=== PATIENT | male | born 1975 | race Caucasian/White ===

== ENCOUNTER 2017-09-02 18:18 | Observation (INO) | payer BC, OTHER ==
--- NOTE | 2017-09-02 18:53 | ER Document Report ---
ED Medical Screen (RME) - General Chief Complaint: Chest Pain Stated Complaint: CHEST PAIN Time Seen by Provider: 09/02/17 18:51 Mode of Arrival: Ambulatory Information source: Patient Notes: Patient is a 41-year-old male who presents to the ER today for chest pain in the center of his chest that started just 2 hours prior to arrival with shortness of breath, nausea, vomiting and diaphoresis. Patient is supposed to have heart catheterization performed in 4 days for 40% blockages of 2 arteries and his heart per patient. Patient's clinical massage therapist is Dr. Kelly out of [facility], he is visiting. TRAVEL OUTSIDE OF THE [place] IN LAST 30 DAYS: No - Related Data Allergies/Adverse Reactions: Penicillins Allergy (Verified 09/02/17 18:23) Past Medical History - General Information source: Patient - Social History Chew tobacco use (# tins/day): No Frequency of alcohol use: Rare Drug Abuse: None - Past Medical History Cardiac Medical History: Reports: Hx Hypercholesterolemia Renal/ Medical History: Denies: Hx Peritoneal Dialysis Past Surgical History: Reports: Hx Cardiac Catheterization - 2015 Review of Systems - Review of Systems Cardiovascular: See HPI Physical Exam - Vital signs Vitals: Temp Pulse Resp BP Pulse Ox 98.1 F 89 18 129/91 H 97 09/02/17 18:28 09/02/17 18:28 09/02/17 18:28 09/02/17 18:28 09/02/17 18:28 - Notes Notes: PHYSICAL EXAMINATION: GENERAL: Uncomfortable appearing, but in no acute distress. HEART: Regular rate and rhythm without murmurs Course - Vital Signs Vital signs: Temp Pulse Resp BP Pulse Ox 98.1 F 89 18 129/91 H 97 09/02/17 18:28 09/02/17 18:28 09/02/17 18:28 09/02/17 18:28 09/02/17 18:28
[2017-09-02] MEDS ORDERED: ASPIRIN 81 MG TABLET, CHEWABLE PO ONE (18:55)
[2017-09-02 19:01] LABS: ABSOLUTE BASOPHILS # (AUTO) 0.1 10^3/uL (0.0-0.2); ABSOLUTE EOSINOPHILS # (AUTO) 0.3 10^3/uL (0.0-0.6); ABSOLUTE LYMPHOCYTES (AUTO) 3.3 10^3/uL (0.5-4.7); ABSOLUTE MONOCYTES (AUTO) 0.8 10^3/uL (0.1-1.4); ABSOLUTE NEUT (AUTO) 5.4 10^3/uL (1.7-8.2); BASOPHILS % (AUTO) 0.7 % (0-2); EOSINOPHILS % (AUTO) 2.6 % (0-6); HEMATOCRIT 46.4 % (37.9-51.0); HEMOGLOBIN 15.6 g/dL (13.5-17.0); LYMPHOCYTES % (AUTO) 33.4 % (13-45); MEAN CORPUSCULAR HEMOGLOBIN 28.8 pg (27.0-33.4); MEAN CORPUSCULAR HGB CONC 33.6 g/dL (32.0-36.0); MEAN CORPUSCULAR VOLUME 86 fl (80-97); MONOCYTES % (AUTO) 8.2 % (3-13); PLATELET COUNT 194 10^3/uL (150-450); RED BLOOD COUNT 5.41 10^6/uL (4.35-5.55); RED CELL DISTRIBUTION WIDTH 14.4 % (11.5-14.0); SEGMENTED NEUTROPHILS % (AUTO) 55.1 % (42-78); TOTAL CELLS COUNTED % (AUTO) 100 %; WHITE BLOOD COUNT 9.8 10^3/uL (4.0-10.5)
--- NOTE | 2017-09-02 19:12 | ER Document Report ---
ED Cardiac - General Chief Complaint: Chest Pain Stated Complaint: CHEST PAIN Time Seen by Provider: 09/02/17 18:51 Mode of Arrival: Ambulatory Notes: 41-year-old male history of angina. Has had this on and off for several years. Had an angiogram done 3 years ago which showed 40% blockage in [address] Kelly with heart and vascular in [place] and history of hypertension and hyperlipidemia. Strong family history of coronary artery disease. Father in his 50s of heart complications. Sister in his her 50s with heart complications. The patient is here out of town visiting when he developed chest pain. Took 3 nitroglycerin but unrelieved. Presented the emergency department with pain going up his neck and down his left arm. Mild nausea but no vomiting. No other symptoms at this time. Denies any chest pain or shortness of breath at this time just some pressure in the chest. TRAVEL OUTSIDE OF THE [place] IN LAST 30 DAYS: No - HPI Patient complains to provider of: Chest pain, Chest tightness Use of: denies: Alcohol, Amphetamines, Bath salts, Caffeine, Cocaine, Decongestants, Other Was the onset of pain: Sudden Is the pain a: Chronic problem Chest pain location: Substernal Quality of pain: Dull - Related Data Allergies/Adverse Reactions: Penicillins Allergy (Verified 09/02/17 18:23) Past Medical History - General Information source: Patient - Social History Smoking Status: Never Smoker Chew tobacco use (# tins/day): No Frequency of alcohol use: Rare Drug Abuse: None Lives with: Spouse/Significant other Family History: CAD Patient has suicidal ideation: No Patient has homicidal ideation: No - Past Medical History Cardiac Medical History: Reports: Hx Hypercholesterolemia Renal/ Medical History: Denies: Hx Peritoneal Dialysis Past Surgical History: Reports: Hx Cardiac Catheterization - 2014 Review of Systems - Review of Systems Constitutional: denies: Chills, Diaphoresis, Fever EENT: denies: Double vision, Ear pain, Difficulty swallowing, Mouth pain Cardiovascular: Chest pain. denies: Palpitations, Heart racing, Orthopnea, Dyspnea Respiratory: denies: Cough, Hurts to breathe, Short of breath Gastrointestinal: Nausea. denies: Abdominal pain, Diarrhea, Vomiting Genitourinary: No symptoms reported Male Genitourinary: No symptoms reported Musculoskeletal: denies: Muscle pain, Leg swelling, Ankle swelling Skin: No symptoms reported Hematologic/Lymphatic: No symptoms reported Neurological/Psychological: No symptoms reported Physical Exam - Vital signs Vitals: Temp Pulse Resp BP Pulse Ox 98.1 F 89 18 129/91 H 97 09/02/17 18:28 18 18:28 09/02/17 18:28 09/02/17 18:28 09/02/17 18:28 Interpretation: Normal - General General appearance: Appears well, Alert - HEENT Head: Normocephalic, Atraumatic Eyes: Normal Pupils: PERRL - Respiratory Respiratory status: No respiratory distress Chest status: Nontender Breath sounds: Normal Chest palpation: Normal - Cardiovascular Rhythm: Regular Heart sounds: Normal auscultation Murmur: No - Abdominal Inspection: Normal Distension: No distension Bowel sounds: Normal Tenderness: Nontender Organomegaly: No organomegaly - Back Back: Normal, Nontender - Extremities General upper extremity: Normal inspection, Nontender, Normal color, Normal ROM , Normal temperature General lower extremity: Normal inspection, Nontender, Normal color, Normal ROM , Normal temperature, Normal weight bearing. No: Jes's sign - Neurological Neuro grossly intact: Yes Cognition: Normal Orientation: AAOx4 Manoj Coma Scale Eye Opening: Spontaneous Manoj Coma Scale Verbal: Oriented [place] Coma Scale Motor: Obeys Commands Manoj Coma Scale Total: 15 Speech: Normal Motor strength normal: LUE, RUE, LLE, RLE Sensory: Normal - Psychological Associated symptoms: Normal affect, Normal mood - Skin Skin Temperature: Warm Skin Moisture: Dry Skin Color: Normal Course - Re-evaluation Re-evalutation: 09/02/17 20:49 Patient definitely has some risk factors concerned enough to obs overnight. Patient has been seen by hospitalist. First set of labs unremarkable. Will admit at this time. - Vital Signs Vital signs: Temp Pulse Resp BP Pulse Ox 98.1 F 70 18 132/81 H 96 09/02/17 18:28 09/02/17 19:38 09/02/17 20:01 09/02/17 20:01 09/02/17 20:01 - Laboratory Result Diagrams: 09/02/17 18:50 09/02/17 18:50 Laboratory results interpreted by me: 09/02/17 09/02/17 18:50 19:21 RDW 14.4 H Urine Ketones 20 H Urine Urobilinogen 2.0 H Urine Ascorbic Acid 40 H - EKG Interpretation by Nh EKG shows normal: Sinus rhythm, [place], Intervals, QRS Complexes Discharge - Discharge Clinical Impression: Angina at rest Condition: Good Disposition: ADMITTED OBSERVATION Admitting Provider: Hospitalist - [facility] Unit Admitted: Telemetry
[2017-09-02 19:16] LABS: ALANINE AMINOTRANSFERASE 51 U/L (21-72); ALBUMIN 4.5 g/dL (3.5-5.0); ALKALINE PHOSPHATASE 52 U/L (38-126); ANION GAP 11 (5-19); ASPARTATE AMINO TRANSFERASE 27 U/L (17-59); BILIRUBIN,DIRECT 0.2 mg/dL (0.0-0.4); BILIRUBIN,TOTAL 0.4 mg/dL (0.2-1.3); BLOOD UREA NITROGEN 17 mg/dL (7-20); CALCIUM 10.1 mg/dL (8.4-10.2); CARBON DIOXIDE 28 mmol/L (22-30); CHLORIDE 104 mmol/L (98-107); CREATINE KINASE 124 U/L (55-170); GLUCOSE 100 mg/dL (75-110); LIPASE 74.3 U/L (23-300); POTASSIUM 4.7 mmol/L (3.6-5.0); SODIUM 143.2 mmol/L (137-145); TOTAL PROTEIN 6.9 g/dL (6.3-8.2)
[2017-09-02 19:27] LABS: CREATINE KINASE MB 0.78 ng/mL (<4.55)
[2017-09-02 19:30] LABS: TROPONIN I < 0.012 ng/mL
[2017-09-02] MEDS ORDERED: NITROGLYCERIN 2% OINTMENT 1 GM PACKET TP ONE (19:41)
[2017-09-02] MEDS ORDERED: MORPHINE SULFATE 10 MG/ML INJ IV ONE (19:41)
[2017-09-02] MEDS ORDERED: ONDANSETRON 4 MG TAB.RAPDIS PO ONE (19:42)
[2017-09-02 19:44] LABS: APPEARANCE,URINE CLEAR; BILIRUBIN,URINE NEGATIVE (NEGATIVE); COLOR,URINE YELLOW; GLUCOSE, URINE NEGATIVE (NEGATIVE); KETONES,URINE 20 mg/dL (NEGATIVE); LEUKOCYTE ESTERASE,URINE NEGATIVE (NEGATIVE); NITRITE,URINE NEGATIVE (NEGATIVE); PROTEIN,URINE NEGATIVE (NEGATIVE); URINE SPECIFIC GRAVITY 1.027
--- NOTE | 2017-09-02 19:50 | RADIOLOGY REPORT (SQ) ---
EXAM DESCRIPTION: CHEST SINGLE VIEW COMPLETED DATE/TIME: 09/02/2017 7:17 pm REASON FOR STUDY: cp COMPARISON: None. EXAM PARAMETERS: NUMBER OF VIEWS: One view. TECHNIQUE: Single frontal radiographic view of the chest acquired. RADIATION DOSE: NA LIMITATIONS: None. FINDINGS: LUNGS AND PLEURA: No opacities, masses or pneumothorax. No pleural effusion. MEDIASTINUM AND HILAR STRUCTURES: No masses. Contour normal. HEART AND VASCULAR STRUCTURES: Heart normal in size. Normal vasculature. BONES: No acute findings. HARDWARE: None in the chest. OTHER: No other significant finding. IMPRESSION: NO ACUTE RADIOGRAPHIC FINDING IN THE CHEST. TECHNICAL DOCUMENTATION: JOB ID: [id number] [place]-72 2010 [employer]- All Rights Reserved Reading location - IP/workstation name: [email or web address]
--- NOTE | 2017-09-02 21:01 | EKG REPORT ---
SEVERITY:- NORMAL ECG - SINUS RHYTHM : Confirmed by: Yesica Eric 02-Sep-2017 21:00:42
[2017-09-02] MEDS ORDERED: ZOLPIDEM TARTRATE 5 MG TABLET PO PRN (21:12)
[2017-09-02] MEDS ORDERED: ONDANSETRON HCL INJ/PF 4 MG/2 ML SDV IV PRN (21:12)
[2017-09-02] MEDS ORDERED: OXYCODONE-ACETAMINOPHEN 5-325 MG TABLET PO PRN (21:12)
[2017-09-02] MEDS ORDERED: NITROGLYCERIN 0.4 MG/TAB 25 TAB/BOTTLE SL PRN (21:18)
--- NOTE | 2017-09-02 21:34 | PDOC H&P ---
History of Present Illness Admission Date/PCP: 09/02/17 21:11 History of Present Illness: JERZY MCDANIEL is a 41 year old male patient presented with chief complaint of chest pain. Strength while he is relaxing at the beach about 5 PM this afternoon he started to have chest pain described as squeezing pressure type localizing to his precordium and radiating to both his neck and left shoulder. The pain relatively subsided after the fourth dose of nitroglycerin sublingual. Patient has strong family history of coronary artery disease both his mom and dad has triple bypass and his brother of heart attack at the age of 51. Patient had cardiac cath 3 years ago and he was told 40% narrowing but could not specify which artery is diseased. Of note patient scheduled to have cardiac cath coming Tuesday. His troponin and EKG are negative. The plan is to keep the patient overnight for observation if the chest pain resolved and patient clinically stable can be discharged next morning and he needs follow-up with his primary admission nurse coordinator. Past Medical History Cardiac Medical History: Reports: Hyperlipidema, Hypertension Past Surgical History Past Surgical History: Reports: Cardiac Catheterization - 2014 Social History Lives with: Spouse/Significant other Smoking Status: Never Smoker Family History Family History: CAD, Hypertension Parental Family History Reviewed: Yes Children Family History Reviewed: Yes Sibling(s) Family History Reviewed.: Yes Medication/Allergy Home Medications: Aspirin 81 mg PO DAILY 09/02/17 Fish Oil/Dha/Epa [Fish Oil 1,200 mg Fish Oil] 1 each PO QHS 09/02/17 Isosorbide Mononitrate [Imdur 30 mg Tablet.er] 15 mg PO DAILY 09/02/17 Metoprolol Tartrate 25 mg PO Q12 09/02/17 Nitroglycerin 0.4 mg SL Q5MP PRN 09/02/17 Pravastatin Sodium 40 mg PO QHS 09/02/17 Allergies/Adverse Reactions: Penicillins Allergy (Verified 09/02/17 18:23) Review of Systems Constitutional: ABSENT: chills, fever(s), headache(s), weight gain, weight loss Cardiovascular: ABSENT: chest pain, dyspnea on exertion, edema, orthropnea, palpitations Respiratory: PRESENT: other - Chest pain Gastrointestinal: ABSENT: abdominal pain, constipation, diarrhea, hematemesis, hematochezia, nausea, vomiting Physical Exam Vital Signs: Temp Pulse Resp BP Pulse Ox 98.1 F 70 18 132/81 H 96 09/02/17 18:28 09/02/17 19:38 09/02/17 20:01 09/02/17 20:01 09/02/17 20:01 General appearance: PRESENT: no acute distress, well-developed, well-nourished Head exam: PRESENT: atraumatic, normocephalic Eye exam: PRESENT: conjunctiva pink, EOMI, PERRLA. ABSENT: scleral icterus Respiratory exam: PRESENT: clear to auscultation ugo. ABSENT: rales, rhonchi, wheezes Cardiovascular exam: PRESENT: RRR. ABSENT: diastolic murmur, rubs, systolic murmur Results Impressions: Chest X-Ray 09/02/17 18:55 IMPRESSION: NO ACUTE RADIOGRAPHIC FINDING IN THE CHEST. Assessment & Plan - Diagnosis (1) Chest pain Qualifiers: Chest pain type: other chest pain Qualified Code(s): R07.89 - Other chest pain; R07.8 - Other chest pain Is this a current diagnosis for this admission?: Yes Plan: We will keep the patient overnight, his cardiac enzymes and for his chest pain will be on nitro, and aspirin. Patient scheduled to have cardiac catheterization coming Tuesday in 4 days by his primary admission nurse coordinator. Patient is clinically stable and can be discharged tomorrow. (2) Hypertension Qualifiers: Hypertension type: essential hypertension Qualified Code(s): I10 - Essential (primary) hypertension Is this a current diagnosis for this admission?: Yes Plan: Continue metoprolol - Time Critical Time spent with patient: 15-24 minutes
[2017-09-02] MEDS ORDERED: ATORVASTATIN CALCIUM 40 MG TABLET PO SCH (22:00)
[2017-09-02] MEDS ORDERED: ENOXAPARIN SODIUM INJ 40 MG/0.4 ML DISP.SYRIN SUBCUT ONE ×2 (22:30→23:45)
[2017-09-02] MEDS: METOPROLOL TARTRATE 25 MG TABLET PO SCH (23:41)
[2017-09-03] MEDS ORDERED: LANSOPRAZOLE 30 MG TAB.RAP.DR PO SCH (06:00)
[2017-09-03 07:25] LABS: ANION GAP 11 (5-19); BLOOD UREA NITROGEN 16 mg/dL (7-20); CALCIUM 9.5 mg/dL (8.4-10.2); CARBON DIOXIDE 28 mmol/L (22-30); CHLORIDE 104 mmol/L (98-107); GLUCOSE 101 mg/dL (75-110); POTASSIUM 4.5 mmol/L (3.6-5.0); SODIUM 143.2 mmol/L (137-145)
[2017-09-03] MEDS ORDERED: ACETAMINOPHEN 325 MG TABLET PO PRN (07:44)
--- NOTE | 2017-09-03 08:31 | PDOC CONSULTATION ---
Consultation Consult Date: 09/03/17 Consult reason:: Evaluation for chest pain History of Present Illness Admission Date/PCP: 09/02/17 21:11 Patient complains of: Chest pain/ pressure History of Present Illness: Here is a very pleasant 41 year old male with PMH of HTN, HPLD, family h/o CAD comes in with c/o mid sternal chest pain/ pressure while he was driving yesterday. he gives h/o on and off chest pain for past 3 weeks abd saw his assistant professor of physics at [place] last tuesday who had started him on Imdur 15 mg daily and scheduled him for a cardiac cath for coming tuesday. He claims he was on vacation this week to the beach and while driving back developed chest pressure with some radiation to his neck/ jaw. His symptoms were resolved after his 4th NTG dose. Since the he has been pain free. He also reports shortness of breath on exertion at times since past few weeks. he works for the [employer] and has a sedentary job. He denies cigarette smoking. he drinks on social occasions and denies any recreational drug use. His father and sister both had CAD by 50 yrs of age. he was admitted last evening and has been chest pain free since last evening. No other c/o dizziness/ palpitations/ swelling of legs. He claims he had a cardiac cath in 2014 which showed 2 blockages up to 40 % in one of the coronaries. Past Medical History Cardiac Medical History: Reports: Hyperlipidema, Hypertension Past Surgical History Past Surgical History: Reports: Cardiac Catheterization - 2014 Social History Lives with: Spouse/Significant other Smoking Status: Never Smoker Frequency of Alcohol Use: Social Hx Recreational Drug Use: No Drugs: None Family History Family History: CAD, Hypertension Parental Family History Reviewed: Yes Children Family History Reviewed: Yes Sibling(s) Family History Reviewed.: Yes Medication/Allergy Home Medications: Aspirin 81 mg PO DAILY 09/02/17 Fish Oil/Dha/Epa [Fish Oil 1,200 mg Fish Oil] 1 each PO QHS 09/02/17 Isosorbide Mononitrate [Imdur 30 mg Tablet.er] 15 mg PO DAILY 09/02/17 Metoprolol Tartrate 25 mg PO Q12 09/02/17 Nitroglycerin 0.4 mg SL Q5MP PRN 09/02/17 Pravastatin Sodium 40 mg PO QHS 09/02/17 Allergies/Adverse Reactions: Penicillins Allergy (Verified 09/02/17 18:23) Review of Systems Constitutional: ABSENT: chills, fever(s), headache(s), weight gain, weight loss Eyes: ABSENT: visual disturbances Ears: ABSENT: hearing changes Cardiovascular: ABSENT: chest pain, dyspnea on exertion, edema, orthropnea, palpitations Respiratory: ABSENT: cough, hemoptysis Gastrointestinal: ABSENT: abdominal pain, constipation, diarrhea, hematemesis, hematochezia, nausea, vomiting Genitourinary: ABSENT: dysuria, hematuria Musculoskeletal: ABSENT: joint swelling Integumentary: ABSENT: rash, wounds Neurological: ABSENT: abnormal gait, abnormal speech, confusion, dizziness, focal weakness, syncope Psychiatric: ABSENT: anxiety, depression, homidical ideation, suicidal ideation Endocrine: ABSENT: cold intolerance, heat intolerance, polydipsia, polyuria Hematologic/Lymphatic: ABSENT: easy bleeding, easy bruising Physical Exam Vital Signs: Temp Pulse Resp BP Pulse Ox 97.8 F 53 L 14 105/60 98 09/03/17 03:52 09/03/17 03:52 09/03/17 03:52 09/03/17 03:52 09/03/17 03:52 Intake & Output 09/02/17 09/03/17 09/04/17 06:59 06:59 06:59 Intake Total 120 Output Total 480 Balance -360 Weight 89.2 kg General appearance: PRESENT: no acute distress, well-developed, well-nourished Head exam: PRESENT: atraumatic, normocephalic Eye exam: PRESENT: conjunctiva pink, EOMI, PERRLA. ABSENT: scleral icterus Ear exam: PRESENT: normal external ear exam Mouth exam: PRESENT: moist, tongue midline Neck exam: ABSENT: carotid bruit, JVD, lymphadenopathy, thyromegaly Respiratory exam: PRESENT: clear to auscultation ugo. ABSENT: rales, rhonchi, wheezes Cardiovascular exam: PRESENT: bradycardia Pulses: PRESENT: normal dorsalis pedis pul Vascular exam: PRESENT: normal capillary refill GI/Abdominal exam: PRESENT: normal bowel sounds, soft. ABSENT: distended, guarding, mass, organolmegaly, rebound, tenderness Rectal exam: PRESENT: deferred Extremities exam: PRESENT: full ROM. ABSENT: calf tenderness, clubbing, pedal edema Neurological exam: PRESENT: alert, awake, oriented to person, oriented to place , oriented to time, oriented to situation, CN II-XII grossly intact. ABSENT: motor sensory deficit Psychiatric exam: PRESENT: appropriate affect, normal mood. ABSENT: homicidal ideation, suicidal ideation Skin exam: PRESENT: dry, intact, warm. ABSENT: cyanosis, rash Results Laboratory Results: 09/03/17 06:40 09/03/17 06:40 Sodium 143.2 Potassium 4.5 Chloride 104 Carbon Dioxide 28 Anion Gap 11 BUN 16 Creatinine 0.94 Est GFR ( Amer) > 60 Est GFR (Non-Af Amer) > 60 Glucose 101 Calcium 9.5 09/03/17 09/03/17 00:50 06:40 Troponin I < 0.012 < 0.012 Impressions: Chest X-Ray 09/02/17 18:55 IMPRESSION: NO ACUTE RADIOGRAPHIC FINDING IN THE CHEST. Status: Image reviewed by me Assessment & Plan - Diagnosis (2) Chest pain Qualifiers: Chest pain type: other chest pain Qualified Code(s): R07.89 - Other chest pain; R07.8 - Other chest pain Is this a current diagnosis for this admission?: Yes (5) Hypertension Qualifiers: Hypertension type: essential hypertension Qualified Code(s): I10 - Essential (primary) hypertension Is this a current diagnosis for this admission?: Yes - Notes Notes: Patient appears euvolemic on exam with BP well controlled. EKG shows sinus rhythm with no significant acute ST-T changes noted.His symptoms are concerning for anginal pain and he is currently asymptomatic on ASA, statin, BB and NTG paste. He wishes to go back to [facility] to get his elective cardiac cath done by his primary assistant professor of physics, which is reasonable as he has been ruled out for acute coronary syndrome with 3 negative cardiac biomarkers. Will recommend replacing NTG paste with Imdur 15 mg daily ( uptitrate to 30 mg if BP allows) and continue his ASA, statin and BB. If he is chest pain free on ambulation he may be allowed to drive back home and contact his assistant professor of physics [facility] for getting his coronary angiography done, sooner if possible. If he does have recurrent anginal sounding symptoms then we will consider transfer to tertiary care hospital for coronary angiogram more urgently. We also discussed risk factor reduction and healthy life style choices. - Time Time Spent: 30 to 50 Minutes
[2017-09-03] MEDS: METOPROLOL TARTRATE 25 MG TABLET PO SCH (09:42)
[2017-09-03] MEDS ORDERED: ENOXAPARIN SODIUM INJ 40 MG/0.4 ML DISP.SYRIN SUBCUT SCH ×2 (10:00→22:00)
[2017-09-03] MEDS ORDERED: ASPIRIN 325 MG TABLET PO SCH (10:00)
[2017-09-03] MEDS ORDERED: ISOSORBIDE MONONITRATE 30 MG TAB.ER.24H PO SCH ×2 (10:00)
--- NOTE | 2017-09-03 10:09 | EKG REPORT ---
SEVERITY:- BORDERLINE ECG - SINUS RHYTHM PROBABLE LEFT ATRIAL ABNORMALITY : Confirmed by: Yesica Eric 03-Sep-2017 10:08:36
--- NOTE | 2017-09-03 12:58 | PDOC TRANSFER SUMMARY ---
General Admission Date/PCP: 09/02/17 21:11 Admission Date: 09/02/17 Transfer Date: 09/03/17 Accepting Facility: [facility] Resuscitation Status: Full Code - Transfer Diagnosis (1) Chest pain Is this a current diagnosis for this admission?: Yes Diagnosis Summary: Acute onset [place] the [place]. PMH 40% stenosis of unknown coronary artery. Significant family history for heart disease (see details above) Patient took 3 SL Nitro [employer], then received ASA, nitro paste, and IV morphine. EKG NSR, no acute infarction or ischemia Serial cardiac enzymes negative, no longer trending CXR benign PRN SL Nitro for chest pain While at [facility], the patient experienced episodes of shortness of breath and " chest tightness," Charlie Hammer (cardiology) aware. Discussed treatment options with the patient. The decision was made to transfer the patient to [facility] for cardiac catheterization (2) History of coronary artery disease Is this a current diagnosis for this admission?: Yes Diagnosis Summary: Patient has a history of coronary artery disease. Significant family history of CAD. Continue ASA, statin, and Imdur (3) Hypertension Is this a current diagnosis for this admission?: Yes Diagnosis Summary: The patient endorses a history of HTN Continue Metoprolol The patient has remained relatively NORMOtensive during his admission - Transfer Medications Home Medications: Aspirin 81 mg PO DAILY 09/02/17 Fish Oil/Dha/Epa [Fish Oil 1,200 mg Fish Oil] 1 each PO QHS 09/02/17 Isosorbide Mononitrate [Imdur 30 mg Tablet.er] 15 mg PO DAILY 09/02/17 Metoprolol Tartrate 25 mg PO Q12 09/02/17 Nitroglycerin 0.4 mg SL Q5MP PRN 09/02/17 Pravastatin Sodium 40 mg PO QHS 09/02/17 Transfer Medications: Current Medications Acetaminophen (Tylenol 325 Mg Tablet) 975 mg PO Q6HP PRN PRN Reason: FOR HEADACHE OR PAIN Stop: 10/03/17 07:43 Last Admin: 09/03/17 08:26 Dose: 975 mg Aspirin (Aspirin 325 Mg Tablet) 325 mg PO DAILY [facility] Stop: 10/03/17 09:59 Last Admin: 09/03/17 09:41 Dose: 325 mg Atorvastatin Calcium (Lipitor 40 Mg Tablet) 40 mg PO QHS SHANELL Stop: 10/02/17 21:59 Last Admin: 09/02/17 23:41 Dose: 40 mg Enoxaparin Sodium (Lovenox Inj 40 Mg/0.4 Ml Disp.Syrin) 40 mg SUBCUT QHS [facility] Stop: 10/03/17 21:59 Enoxaparin Sodium (Lovenox Inj 40 Mg/0.4 Ml Disp.Syrin) 40 mg SUBCUT Q12 [facility] Stop: 10/03/17 12:14 Isosorbide Mononitrate (Imdur 30 Mg Tablet.Er) 30 mg PO DAILY [facility] Stop: 10/03/17 09:59 Last Admin: 09/03/17 09:42 Dose: 30 mg Lansoprazole (Prevacid 30 Mg Odt Tablet) 30 mg PO Q6AM [facility] Stop: 10/03/17 05:59 Last Admin: 09/03/17 05:10 Dose: Not Given Metoprolol Tartrate (Lopressor 25 Mg Tablet) 25 mg PO Q12 [facility] Stop: 10/02/17 21:59 Last Admin: 09/03/17 09:42 Dose: 25 mg Nitroglycerin (Nitrostat 0.4 Mg (1/150 Gr) Tabs 25/Bottle) 1 tab SL Q5MP PRN PRN Reason: FOR CHEST PAIN Stop: 10/02/17 21:17 Ondansetron HCl (Zofran Inj/Pf 4 Mg/2 Ml Sdv) 4 mg IV Q8HP PRN PRN Reason: FOR NAUSEA/VOMITING Stop: 10/02/17 21:11 Oxycodone/Acetaminophen (Percocet 5-325 Mg Tablet) 1 tab PO Q6HP PRN PRN Reason: FOR CHEST PAIN Stop: 09/09/17 21:11 Sodium Chloride (Saline Flush 2.5 Ml Monoject Prefil Syrin) 2.5 ml IV Q8 [facility] Stop: 10/02/17 21:59 Last Admin: 09/03/17 05:10 Dose: Not Given Zolpidem Tartrate (Ambien 5 Mg Tablet) 5 mg PO HSP PRN PRN Reason: SLEEP OR INSOMNIA Stop: 09/09/17 21:11 - Allergies Allergies/Adverse Reactions: Penicillins Allergy (Verified 09/02/17 18:23) - Diet/Activity Discharge Diet: Cardiac Discharge Activity: Activity As Tolerated Hospital Course Hospital Course: JERZY MCDANIEL is a 41 year old male patient presented with chest pain. He states it began while he is relaxing at the beach about 5 PM 09/02/2017 , he began experiencing squeezing pressure type localizing to his precordium and radiating to both his neck and left shoulder. The pain relatively subsided after the 3rd nitroglycerin sublingual. Patient has strong family history of coronary artery disease both his mom and dad has triple bypass and his brother of a heart attack at the age of 51. Patient had cardiac catheterization 3 years ago and he was told he had 40% narrowing of one coronary artery, but could not specify which is diseased. Of note patient scheduled to have cardiac catheterization this coming Tuesday in [place]. In the emergency department, the patient was treated with full dose aspirin, nitropaste, and IV Morphine. The patient had already taken 3 SL Nitro tablets prior to arrival. After medication administration, the patient stated that he was chest pain free. Troponin <0.012. EKG shows NSR, no evidence of acute ischemia or infarction. Given his significant risk factors, the patient was admitted for chest pain observation, cardiology consulted. This morning, the patient was ambulating around the unit. Following this, he reported to his that he felt slightly short of breath. He did not appear to be in distress, his LTCA, and his continuous EKG tracing only showed NSR. The SOB resolved once the patient was resting in his bedside recliner. Shortly before receiving his morning medications, the patient reported that he began experiencing chest tightness. He denied pain, nausea, or vomiting. EKG done, was the same as the prior EKG (NSR). Patient given morning medications, which included Imdur and Metoprolol. Within 30 minutes, the patient stated he was chest pain free. The patient was re-evaluated by the habilitation specialist, Dr. Guerra. Decision was made to transfer patient to [facility] for unstable angina and the need for cardiac catheterization. Physical Exam Vital Signs: Temp Pulse Resp BP Pulse Ox 98.1 F 59 L 16 120/79 98 09/03/17 07:43 09/03/17 07:43 09/03/17 07:43 09/03/17 07:43 09/03/17 07:43 Intake & Output 09/02/17 09/03/17 09/04/17 06:59 06:59 06:59 Intake Total 120 Output Total 480 Balance -360 Weight 89.2 kg General appearance: PRESENT: no acute distress Eye exam: PRESENT: conjunctiva pink, EOMI, PERRLA Mouth exam: PRESENT: moist Neck exam: PRESENT: full ROM Respiratory exam: PRESENT: clear to auscultation ugo, symmetrical, unlabored Cardiovascular exam: PRESENT: +S1, +S2 Pulses: PRESENT: normal radial pulses, normal dorsalis pedis pul GI/Abdominal exam: PRESENT: normal bowel sounds, soft. ABSENT: tenderness Rectal exam: PRESENT: deferred Extremities exam: PRESENT: full ROM Musculoskeletal exam: PRESENT: ambulatory, full ROM Neurological exam: PRESENT: alert, awake, oriented to person, oriented to place , oriented to time, oriented to situation Psychiatric exam: PRESENT: appropriate affect Skin exam: PRESENT: normal color Results Laboratory Results: 09/03/17 06:40 09/03/17 06:40 Sodium 143.2 Potassium 4.5 Chloride 104 Carbon Dioxide 28 Anion Gap 11 BUN 16 Creatinine 0.94 Est GFR ( Amer) > 60 Est GFR (Non-Af Amer) > 60 Glucose 101 Calcium 9.5 09/03/17 09/03/17 00:50 06:40 Troponin I < 0.012 < 0.012 Impressions: Chest X-Ray 09/02/17 18:55 IMPRESSION: NO ACUTE RADIOGRAPHIC FINDING IN THE CHEST. Status: Imported from PACS Plan Discharge Plan: Transfer to [facility] for cardiac catheterization Time Spent: Less than 30 Minutes
[2017-09-03] MEDS ORDERED: ENOXAPARIN SODIUM INJ 40 MG/0.4 ML DISP.SYRIN SUBCUT ONE (16:00)
[2017-09-03 20:11] VITALS: BP 129/73
[2017-09-04] MEDS ORDERED: ENOXAPARIN SODIUM INJ 40 MG/0.4 ML DISP.SYRIN SUBCUT SCH (06:00)
== END 2017-09-03 20:40 | disposition short-term general hospital (02) ==
LOC: ER 18:18 → EH 21:11 → 4W 22:26
PROVIDERS: ADMIT Internal Medicine; ATTEND Internal Medicine
DX: R07.89 Other chest pain (principal); I10 Essential (primary) hypertension; E78.5 Hyperlipidemia, unspecified; Z86.79 Personal history of other diseases of the circulatory system
CPT/HCPCS: 93005 ×2; 99285; 96374; 36415 ×2; 82553; 82550; 83690; 85025; 80048; 80053; 81001; 84484 ×2; 71045; 93010 ×2; S0119; J2270; J1650 ×2; J3490